=== PATIENT | female | born 1985 | race Caucasian/White ===

== ENCOUNTER 2017-04-29 19:20 | Emergency (ER) | payer OTHER ==
--- NOTE | 2017-04-29 19:31 | PDOC ---
History of Present Illness - History of Present Illness Initial Comments: 04/29/17 20:12 The patient is a 31 year old female, with no significant past medical history, who presents to the emergency department with superficial dog bite to her left cheek sustained at 4PM today while she was helping a groomer with a dog at work. She states she was picking up the dog when the dog became startled and bit her face. She reports mild pain with swelling to the left side of her face. She denies history of MRSA or poor wound healing. She denies chest pain, shortness of breath, headache and dizziness. She denies fever, chills, nausea, vomit, diarrhea and constipation. She denies dysuria, frequency, urgency and hematuria. Allergies: NKDA PCP - Dr. Heath <More Brock - Last Filed: 04/29/17 20:20> <Giuliana Snell - Last Filed: 04/30/17 02:08> - General Chief Complaint: Bite Stated Complaint: DOG BITE TO LEFT CHEEK Time Seen by Provider: 04/29/17 19:28 Past History <More Brock - Last Filed: 04/29/17 20:20> <Giuliana Snell - Last Filed: 04/30/17 02:08> - Past Medical History Allergies/Adverse Reactions: Allergies Allergy/AdvReac Type Severity Reaction Status Date / Time No Known Allergies Allergy Verified 04/29/17 19:26 Home Medications: Ambulatory Orders Amox-Tr/K Cl [Augmentin - 875Mg Tablet] 1 tab PO BID #14 tablet 04/29/17 Review of Systems - Review of Systems Able to Perform ROS?: Yes Comments:: 04/29/17 20:13 CONSTITUTIONAL: Absent: fever, no chills, no fatigue EYES: Absent: visual changes ENT: Absent: ear pain, no sore throat CARDIOVASCUL R: Absent: chest pain, no palpitations RESPIRATORY: Absent: cough, no SOB GI: Absent: abdominal pain, no nausea, no vomiting, no constipation, no diarrhea GENITOURINARY: Absent: dysuria, no frequency, no hematuria MUSKULOSKELETAL: Absent: back pain, no arthralgia, no myalgia SKIN: (+) superficial dog bite to left cheek. Absent: rash NEURO: Absent: headache <More Brock - Last Filed: 04/29/17 20:20> *Physical Exam - Vital Signs Last Vital Signs Temp Pulse Resp BP Pulse Ox 98.7 F 63 15 125/72 99 04/29/17 19:25 04/29/17 19:25 04/29/17 19:25 04/29/17 19:25 04/29/17 19:25 - Physical Exam Comments: 04/29/17 20:13 GENERAL: The patient is awake, alert, and fully oriented, in no acute distress. HEAD: Normal with no signs of trauma. EYES: Pupils equal, round and reactive to light, extraocular movements intact, sclera anicteric, conjunctiva clear with no pallor. ENT: (+) There is a superficial linear abrasion inferior to the left eye 1cm, non-bleeding, nontender. No evidence of through and through with normal left buccal surface. No injury or abnormality of the tongue or oropharynx. Ears normal, nares patent, oropharynx clear without exudates. Moist mucous membranes. NECK: Normal range of motion, supple without lymphadenopathy, JVD, or masses. LUNGS: Breath sounds equal, clear to auscultation bilaterally. No wheeze/ crackles. HEART: Regular rate and rhythm, normal S1 and S2 without murmur or rub. ABDOMEN: Soft/nontender/nondistended. BS wnl. No guarding or rebound. No palpable masses. No hepatosplenomegaly. EXTREMITIES: Normal range of motion, no edema. No clubbing or cyanosis. No cords , erythema, or tenderness. NEUROLOGICAL: Cranial nerves II through XII grossly intact. Normal speech, normal gait. PSYCH: Normal mood, normal affect. SKIN: (+) There is 3mm partial thickness laceration of the mid left cheek with surrounding [id number] area of mild erythema, mild edema and mild tenderness without fluctuance or drainage. Warm, Dry, normal turgor, <More Brock - Last Filed: 04/29/17 20:20> Progress Note - Progress Note Progress Note: Documentation has been prepared under my direction and personally reviewed by me in its entirety. I attest that this documented accurately reflects all work, treatment, procedures and medical decision making performed by me. <Giuliana Snell - Last Filed: 04/30/17 02:08> Medical Decision Making - Medical Decision Making As noted above, this 31-year-old woman presents with a history of dog bite to the left cheek. 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 No other injury sustained. The area of the dog bite has become edematous in the last few hours; patient has no significant pain although the area is tender. No history of poor wound healing or resistant organism infection. Last tetanus prophylaxis "was many years ago" Exam as noted. Although the area is edematous and slightly erythematous, there is no evidence of through and through laceration. Using sterile technique, area was cleansed with sterile saline as well as Hibiclens/ethanol solution. Wound was covered with bacitracin ointment. Boostrix was administered. Because the area around the bite has become edematous and this is a facial wound , first dose of antibiotic(Unasyn 3 g ) was administered intravenously. Patient was discharged with prescription for Augmentin 875/125 twice a day for one week. She should keep her head elevated tonight and put antibiotic ointment on the wound daily Follow-up wound check by her general doctor should be within the next 3-4 days She should return to the ER if she has worsening pain/redness/swelling in the area of the wound or if she develops fever/chills <Giuliana Snell - Last Filed: 04/30/17 02:08> *DC/Admit/Observation/Transfer - Attestations Scribe Attestion: 04/29/17 20:14 Documentation prepared by Moer Brock, acting as medical billing and coding specialist for Giuliana Snell MD <More Brock - Last Filed: 04/29/17 20:20> <Giuliana Snell - Last Filed: 04/30/17 02:08> Diagnosis at time of Disposition: Dog bite of left cheek Qualifiers: Encounter type: initial encounter Qualified Code(s): S01.452A - Open bite of left cheek and temporomandibular area, initial encounter - Discharge Dispostion Disposition: HOME Condition at time of disposition: Stable - Prescriptions Prescriptions: Amox-Tr/K Cl [Augmentin - 875Mg Tablet] 1 tab PO BID #14 tablet - Referrals Referrals: Mirella Heath [Primary Care Provider] - - Patient Instructions Printed Discharge Instructions: DI for Animal Bites Additional Instructions: Keep head elevated tonight Bacitracin/Neosporin to the area of bite daily for the next week Augmentin 875/125 twice a day for one week; take with food Follow-up with your general doctor within the next 3-4 days Return to ER immediately if you have increased swelling/pain in the area of bite or develop fever/chills
[2017-04-29 19:33] VITALS: BP 125/72; PULSE 63; TEMP 98.7; BMI 23.6
[2017-04-29] MEDS ORDERED: AMPICILLIN NA/SULBACTAM NA 3 GM in SODIUM CHLORIDE 100 ML IVPB ONE (19:49)
[2017-04-29] MEDS ORDERED: AMPICILLIN NA/SULBACTAM NA 3 GM VIAL ONE (19:52)
[2017-04-29] MEDS ORDERED: DIPHTH,PERTUSS(ACELL),TET 0.5 ML DISP.SYRIN IM ONE (20:20)
== END 2017-04-29 20:40 | disposition home or self-care (01) ==
LOC: FER 19:20
PROC: 3E0234Z Introduction of Serum, Toxoid and Vaccine into Muscle, Percutaneous Approach (ICD-10-PCS; principal; 2017-04-29)
DX: S01.452A Open bite of left cheek and temporomandibular area, initial encounter (principal)
CPT/HCPCS: 90715; 99282-25